=== PATIENT | male | born 1950 | race Caucasian/White ===

== ENCOUNTER 2016-07-15 22:55 | Emergency (ER) | payer MEDICARE, OTHER ==
[~2016-07-15] VITALS: Ht 185.4 cm; Wt 88.0 kg
[~2016-07-15 22:55] MED LIST: CYCL-36 PO; IBUP-238 PO; LORT5TAB PO; Z.0.NO CURRENT MEDS
[2016-07-15 23:32] VITALS: BP 119/89; PULSE 122; RESP 20; TEMP 99.3; O2SAT 97
[2016-07-15] MEDS ORDERED: TRAM50TA PO (23:53)
[2016-07-15] MEDS ORDERED: NAPR500 PO (23:53)
[2016-07-15 23:54] VITALS: BP 119/89; PULSE 102; RESP 18; TEMP 99.3; O2SAT 97
--- NOTE | 2016-07-16 00:22 | PD ---
HPI Chief Complaint: Cold / Flu Symptoms Time Seen by Provider: 00:22 Travel History International Travel<30 days: No Contact w/Intl Traveler<30days: No Traveled to known affect area: No History of Present Illness HPI The patient is a 66-year-old male that complains of cough congestion and pain in the sinus areas for about 2 days. He also has myalgias. He probably has had a low-grade fever at home. When he coughs, he has pain in his ribs bilaterally anteriorly. He does not smoke. He states he does have a sinus drainage and upper airway congestion. FOR[facility]LY [facility], LATER [facility] Past Medical History Diminished Hearing: No Tetanus Vaccination: Unknown Influenza Vaccination: Yes Past Surgical History Neurologic Surgery: Yes (BACK SURGERY X2) Social History Alcohol Use: Yes (OCCASIONAL) Tobacco Use: No Substance Use: No Allergies-Medications (Allergen,Severity, Reaction): Coded Allergies: Penicillin (Verified Allergy, Severe, RASH, 07/15/16) Reported Meds & Prescriptions Reported Meds & Active Scripts Active Zithromax (Azithromycin) 500 Mg Tab 500 Mg PO DAILY 5 Days Reported Naprosyn (Naproxen) 500 Mg Tab 500 Mg PO BID Tramadol (Tramadol HCl) 50 Mg Tab 50 Mg PO Q8H PRN Review of Systems Except as stated in HPI: all other systems reviewed are Neg Physical Exam Narrative GENERAL: The patient is alert, oriented 3 in no respiratory distress. His vital signs show temperature 99.3 with a heart rate of 122, repeat heart rate is 102, and the rest the vital signs are normal. SKIN: Warm and dry. No skin rash is seen. HEAD: Atraumatic. Normocephalic. EYES: Pupils equal and round. No scleral icterus. No injection or drainage. ENT: No nasal bleeding or discharge. Mucous membranes pink and moist. No sinus tenderness is present but the patient perceives sinus pain behind his eyes bilaterally. NECK: Trachea midline. No JVD. CARDIOVASCULAR: Regular rate and rhythm. No murmur appreciated. RESPIRATORY: No accessory muscle use. Clear to auscultation. Breath sounds equal bilaterally. GASTROINTESTINAL: Abdomen soft, non-tender, nondistended. Hepatic and splenic margins not palpable. No guarding or rebound is present. MUSCULOSKELETAL: No obvious deformities. No clubbing. No cyanosis. No edema. NEUROLOGICAL: Awake and alert. No obvious cranial nerve deficits. Motor grossly within normal limits. Normal speech. PSYCHIATRIC: Appropriate mood and affect; insight and judgment normal. Data Data Last Documented VS Vital Signs Date Time Temp Pulse Resp B/P Pulse Ox O2 Delivery O2 Flow Rate FiO2 07/15/16 23:57 102 18 97 Room Air 07/15/16 23:54 99.3 119/89 Orders Influenzae A/B Antigen (07/16/16 00:03) Influenzae A/B Antigen (07/16/16 00:22) MDM Medical Decision Making Medical Screen Exam Complete: Yes Emergency Medical Condition: Yes Medical Record Reviewed: Yes Interpretation(s) The influenza A/B antigen is negative for flu a and flu B antigen. Differential Diagnosis Viral syndrome, flu syndrome, rhinosinusitis, pneumoniaunlikely, bronchitis unlikely Narrative Course The patient appears to have rhinosinusitis with a viral syndrome. He is allergic to penicillin so we will give him Zithromax to see if that does not improve his sinusitis type symptoms. He needs to follow-up with a primary care physician next week. Diagnosis Primary Impression: Acute rhinosinusitis Additional Impression: Viral syndrome Additional Instructions: Take the antibiotic one tablet daily for 5 days. Drink plenty of liquids. Follow-up with her primary care physician in one week. Med/Other Pt SpecificInfo: Prescription(s) given Scripts Azithromycin (Zithromax)500 Mg Chb110 Mg PO DAILY 5 Days Ref 0 Prov:Almas Boswell MD 07/16/16 Disposition: 01 DISCHARGE HOME Condition: Stable Almas Boswell MD Jul 16, 2016 00:22
[2016-07-16] MEDS ORDERED: ZITH500T PO (00:28)
[2016-07-16 00:54] VITALS: BP 122/84; PULSE 94; RESP 18; O2SAT 97
[2016-07-16] MEDS ORDERED: AZITHROMYCIN 250 MG TAB PO ONE (01:00)
[2016-11-24] MEDS ORDERED: PRED50 PO (06:35)
[2016-12-01] MEDS ORDERED: TRAM50TA PO (07:41)
[2016-12-01] MEDS ORDERED: NAPR250T PO (07:42)
== END 2016-07-16 00:59 | disposition home or self-care (01) ==
LOC: PHED 22:55
DX: J01.90 Acute sinusitis, unspecified (principal); B34.9 Viral infection, unspecified; R05 Cough; M79.1 Myalgia
CPT/HCPCS: 87804; 99283

== ENCOUNTER 2016-11-18 22:20 | Inpatient (IN) | payer MEDICARE ==
[~2016-11-18 22:20] MED LIST changes: -CYCL-36 PO; -IBUP-238 PO; -LORT5TAB PO; +NAPR500 PO; +TRAM50TA PO; -Z.0.NO CURRENT MEDS; +ZITH500T PO
[2016-11-18] MEDS ORDERED: NALOXONE HCL 0.4 MG/ML AMP IV PRN (23:15)
[2016-11-18] MEDS ORDERED: MELATONIN 5 MG TAB PO ONE (23:30)
[2016-11-19] VITALS: BP 124/85; PULSE 107; RESP 18; TEMP 98.2; O2SAT 97
[2016-11-19] MEDS ORDERED: ONDANSETRON HCL 4 MG/2 ML VIAL IV PUSH PRN (01:30)
[2016-11-19] MEDS: ACETAMINOPHEN 500 MG CPLT PO PRN ×3 (01:39→16:34)
[2016-11-19 04:00] VITALS: BP 126/74; PULSE 133; RESP 18; TEMP 99.4; O2SAT 93
[2016-11-19 04:25] LABS: AUTOMATED NEUTROPHIL # 5.6 TH/MM3 (1.8-7.7); BASOPHIL # 0.1 TH/MM3 (0-0.2); BASOPHIL % 1.5 % (0.0-2.0); EOSINOPHIL # 0.3 TH/MM3 (0-0.4); EOSINOPHIL % 5.1 % (0.0-4.0); HEMATOCRIT 38.5 % (39.0-51.0); HEMO FLAGS DIFF FINAL; LYMPH % 4.6 % (9.0-44.0); LYMPHOCYTE # 0.3 TH/MM3 (1.0-4.8); MEAN CELL VOLUME 92.1 FL (80.0-100.0); MEAN CORPUSCULAR HEMOGLOBIN 30.5 PG (27.0-34.0); MEAN CORPUSCULAR HGB CONC 33.2 % (32.0-36.0); MONO % 6.7 % (0.0-8.0); NEUT % 82.1 % (16.0-70.0); PLATELET COUNT 132 TH/MM3 (150-450); RED BLOOD COUNT 4.18 MIL/MM3 (4.50-5.90); RED CELL DISTRIBUTION WIDTH 13.3 % (11.6-17.2); WHITE BLOOD COUNT 6.8 TH/MM3 (4.0-11.0)
[2016-11-19 04:36] LABS: BICARBONATE 22.9 MEQ/L (21.0-32.0)
[2016-11-19] MEDS ORDERED: SODIUM CHLOR 0.9% 1000 ML INJ 1,000 ML IV SCH (05:00)
--- NOTE | 2016-11-19 07:44 | HHI.HP ---
[facility] Admission Diagnosis Diagnoses: (1) Sepsis Diagnosis: Principal (2) Febrile illness Diagnosis: Principal (3) Sinus tachycardia Diagnosis: Principal (4) Cephalalgia Diagnosis: Principal (5) Sinusitis Diagnosis: Principal (6) Pneumonia Diagnosis: Principal (7) Thrombocytopenia Diagnosis: Principal (8) Hyperglycemia Diagnosis: Principal Chief Complaint: Fever Travel History International Travel<30 Days: No Contact w/Intl Traveler <30 Da: No Traveled to Known Affected Are: No Sepsis Criteria SIRS Criteria (2 or more): Temp > 100.9 or < 96.8, Heart rate over 90 Sepsis Criteria (SIRS+source): Infect source susp/known Criteria Outcome: Meets sepsis criteria History of Present Illness 66-year-old male with early chronic medical illness of chronic back pain who presented to the hospital because of fever. Patient states that his normal state of health on Thursday without any symptoms. Patient woke up Thursday morning at 2 AM with a headache located in the frontal sinus and bitemporal region. He does have migraines and this was not unusual for him to have a headache. However, patient states that he has felt lethargic with body aches all day. He laid on the couch all day until his came home. She took his temperature and is 102.0. Because of the fever they went to the ER [place] for evaluation. Patient had workup done there and found to have sepsis with tachycardia, febrile illness, chest x-ray with opacity of the left lung base. Because of the reasons it was recommended by ER physician that patient be observed in the hospital for further recommendations. Upon evaluating the patient this morning he states that he still has a headache still located in the frontal and bitemporal region. He states that he did have an episode of vomiting this morning approximate 4 AM. He rates the pain 4/10 on a pain scale. Denies any rhinorrhea, cough, congestion, sputum production. He does have a sore throat which is making difficult for him to swallow. He states that because of the sore throat and he has not been able to breathe normally and he describes it as a dyspnea. Patient is not indicating any shortness of breath. Review of Systems Constitutional: COMPLAINS OF: Fever, DENIES: Diaphoretic episodes, Fatigue, Weight gain, Weight loss, Chills, Dizziness, Change in appetite, Night Sweats Eyes: DENIES: Blurred vision, Diplopia, Eye inflammation, Eye pain, Vision loss , Photosensitivity, Double Vision Ears, nose, mouth, throat: COMPLAINS OF: Throat pain, Sinus Pain, Odynophagia, DENIES: Vertigo, Nasal discharge, Ear Pain, Running Nose Respiratory: DENIES: Apneas, Cough, Snoring, Wheezing, Hemoptysis, Sputum production, Shortness of breath Cardiovascular: DENIES: Chest pain, Palpitations, Syncope, Dyspnea on Exertion , Lower Extremity Edema, Orthopnea Gastrointestinal: COMPLAINS OF: Vomiting, DENIES: Abdominal pain, Black stools , Bloody stools, Constipation, Diarrhea, Nausea, Difficulty Swallowing, Anorexia Neurologic: DENIES: Abnormal gait, Headache, Localized weakness, Paresthesias, Speech Problems, Tremor, Poor Balance Past Family Social History Past Medical History Chronic back pain Past Surgical History Lumbar spine surgery 3 Reported Medications Tramadol for pain Allergies: Coded Allergies: Penicillin (Verified Allergy, Severe, RASH, 11/18/16) Family History Reviewed and unremarkable for any heart disease, lung disease, diabetes, kidney disease, cancer Social History Patient was smoking 3 years ago, prior to that he smoked 1-1/2 pack a cigarettes a day since he was 15 years old. He does drink only 2 beers 3 times weekly. Denies any illicit drugs Physical Exam Vital Signs Vital Signs Date Time Temp Pulse Resp B/P Pulse Ox O2 Delivery O2 Flow Rate FiO2 11/19/16 04:00 99.4 133 18 126/74 93 11/19/16 00:00 98.2 107 18 124/85 97 Physical Exam GENERAL: Well-developed, well-nourished, in no acute distress. alert and orientated HEENT: Head is normocephalic without any lesions or masses noted. Facial features are symmetric. Eyes: Pupils equal round reactive to light. Extraocular muscles are intact. Conjunctivae were clear. Oropharyngeal: Pharynx with erythema noted in the posterior pharynx. Tongue is midline without deviation. Buccal mucosa is moist without any masses or lesions. Palpable tenderness noted over frontal sinus and maxillary sinuses NECK: Supple without any masses. Trachea midline no deviation. No JVD, no bruits are appreciated CARDIAC: Regular rhythm, regular rate. S1/S2 are heard. No murmurs gallops or rubs. LUNGS: Clear to auscultation bilaterally. No wheeze, rhonchi or rales. No use of accessory muscles on inspiration or expiration. ABDOMEN: Soft, nontender. Nondistended. Bowel sounds heard in all 4 quadrants. No organomegaly or masses. Negative rebound, negative guarding EXTREMITIES: No edema, pulses are equal bilaterally. No cyanosis or clubbing NEUROLOGY: Mood and affect appear appropriate. Cranial nerves II through XII grossly intact. Muscle strength 5/5 in upper and lower extremities bilaterally. Deep tendon reflexes are 2+ in upper and lower extremities bilaterally. Laboratory Laboratory Tests Test 11/19/16 04:10 White Blood Count 6.8 Red Blood Count 4.18 Hemoglobin 12.8 Hematocrit 38.5 Mean Corpuscular Volume 92.1 Mean Corpuscular Hemoglobin 30.5 Mean Corpuscular Hemoglobin 33.2 Concent Red Cell Distribution Width 13.3 Platelet Count 132 Mean Platelet Volume 7.8 Neutrophils (%) (Auto) 82.1 Lymphocytes (%) (Auto) 4.6 Monocytes (%) (Auto) 6.7 Eosinophils (%) (Auto) 5.1 Basophils (%) (Auto) 1.5 Neutrophils # (Auto) 5.6 Lymphocytes # (Auto) 0.3 Monocytes # (Auto) 0.5 Eosinophils # (Auto) 0.3 Basophils # (Auto) 0.1 CBC Comment DIFF FINAL Differential Comment Sodium Level 138 Potassium Level 4.0 Chloride Level 104 Carbon Dioxide Level 22.9 Anion Gap 11 Blood Urea Nitrogen 13 Creatinine 0.99 Estimat Glomerular Filtration 76 Rate Random Glucose 132 Calcium Level 8.3 Result Diagram: 11/19/1640911/19/16409 Septic Shock Reassessment Heart: Other (tachycardia) Lungs: Clear Skin: Warm Peripheral Pulses: Bounding Right Radial Bounding Left Radial Capillary Refill: Brisk, <2 seconds Assessment and Plan Assessment and Plan 66-year-old male with known history of chronic back pain who presented to hospital because of febrile illness. Acute febrile illness most likely due to sinusitis with faint left lung infiltrate on x-ray, with no significant clinical signs of pneumonia, rule out sepsis Patient started on empirical treatment for community acquired pneumonia with Rocephin and Zithromax, will monitor -Started on decongestant and steroid nasal spray to improve his sinus symptoms, along with Tylenol Influenza testing was negative Blood cultures are pending Urinalysis was clear Patient without any nuchal rigidity, however in light of the patient's acute cephalgia, fever and sepsis appearance. If patient improved without fever, he may be able to be discharged on doxycycline for 10 days Dyspnea with tachycardia, decreased O2 saturations, mild thrombocytopenia Could be all secondary to sepsis as above Hyperglycemia We'll check hemoglobin A1c DVT prevention SCD and ambulation, we'll hold on chemical due to thrombocytopenia Written by Ross Boswell, acting as scribe for Dr. Washington on 11/19/16 at 09: 35. Addendum: CT chest came back positive for left hilar mass with mediastinal adenopathy, pulmonology consulted, recommended bronchoscopy, patient will need to go to [facility] for bronchoscopy if he is approved by the [place] Discussed Condition With Patient and PA Problem Qualifiers (1) Cephalalgia: Qualified Code: R51 - Intractable headache, unspecified chronicity pattern, unspecified headache type (2) Sinusitis: Qualified Code: J32.4 - Pansinusitis, unspecified chronicity (3) Pneumonia: Qualified Code: J18.1 - Pneumonia of left lower lobe due to infectious organism Ross Boswell November 19, 2016 07:44 Jose Washington MD November 19, 2016 11:01
[2016-11-19] MEDS ORDERED: cefTRIAXone INJ 1,000 MG in SODIUM CHLORIDE 0.9% INJ 100 ML IV SCH (09:00)
[2016-11-19 09:02] VITALS: BP 160/87; PULSE 77; RESP 16; TEMP 101.8; O2SAT 94
[2016-11-19] MEDS: SODIUM CHLORIDE 0.9% FLUSH 10 ML FLUSH IV FLUSH SCH ×2 (09:07→23:40)
[2016-11-19] MEDS: AZITHROMYCIN 250 MG TAB PO SCH (09:08)
[2016-11-19] MEDS ORDERED: ENALAPRILAT 1.25 MG/ML VIAL IV PUSH PRN (09:30)
[2016-11-19] MEDS: FLUTICASONE PROPIONATE 50 MCG/ACT 16 GM NASAL SPRAY NASAL SCH (11:00)
[2016-11-19] MEDS: OXYMETAZOLINE HCL 0.05% 15 ML NASAL SPRAY NASAL SCH ×2 (11:00→23:40)
[2016-11-19 12:06] VITALS: BP 134/71; PULSE 101; RESP 18; TEMP 99.1; O2SAT 94
[2016-11-19] MEDS ORDERED: IOHEXOL 350 MG/ML 10 ML VIAL (for RAD DIAG) IV ONE (12:15)
--- NOTE | 2016-11-19 12:34 | RADHPO ---
EXAM DATE/TIME: 11/19/2016 11:59 [facility] COMPARISON: No previous studies available for comparison. INDICATIONS : Elevated d-dimer, shortness of breath, cough. IV CONTRAST: 99 cc Omnipaque 350 (iohexol) IV RADIATION DOSE: 13.19 CTDIvol (mGy) MEDICAL HISTORY : Hypertension. Asbestosis, sob SURGICAL HISTORY : None. ENCOUNTER: Initial ACUITY: 1 day PAIN SCALE: 3/10 LOCATION: chest TECHNIQUE: Volumetric scanning of the chest was performed using a pulmonary embolism protocol MIP images were re constructed. Using automated exposure control and adjustment of the mA and/or kV according to patien t size, radiation dose was kept as low as reasonably achievable to obtain optimal diagnostic quality images. FINDINGS: There are no parenchymal lung infiltrates. There is mediastinal adenopathy, AP window adenopathy and subcarinal adenopathy. This is associated with a small hilar mass. All these fin dings are suspicious for a neoplastic process. Bronchoscopy would probably be the easiest way to make a diagno sis. There is no pericardial effusion. The portions of the liver and spleen identified are free of focal defects. There is good visualization of the central pulmonary vessels. There is no evidence of central pulmon rosales emboli. CONCLUSION: Adenopathy in the mediastinum with a small left hilar mass. The findings are suspicious for a small cell carcinoma. Metastatic disease could give a similar appearance. Lamonte Salazar MD FACR on November 19, 2016 at 12:21 Board Certified Radiologist. This report was verified electronically.
--- NOTE | 2016-11-19 14:32 | RADHPO ---
EXAM DATE/TIME: 11/19/2016 13:57 [facility] COMPARISON: No previous studies available for comparison. INDICATIONS : Elevated D-Dimer. MEDICAL HISTORY : Head trama, skull fx. Migraine. Respiratory disorder. Arthritis. Sepsis. Tachycardia. Cephalagia. Dys pnea. SURGICAL HISTORY : Back surgery. ENCOUNTER: Initial ACUITY: 1 day PAIN SCORE: 2/10 LOCATION: Bilateral leg. TECHNIQUE: Venous ultrasound of the left and right leg was performed from the inguinal ligament to the proximal calf. Real-time, color Doppler and spectral tracing, compression and augmentation techniques were us ed. FINDINGS: RIGHT LEG: There is normal compressibility of the deep venous system from the inguinal region to the proximal ca lf. No echogenic clot is seen in the lumen of the common femoral, femoral, popliteal, and posterior tibial veins. There is a normal response of the venous system to proximal and distal augmentation an d respiration. LEFT LEG: There is normal compressibility of the deep venous system from the inguinal region to the proximal ca lf. No echogenic clot is seen in the lumen of the common femoral, femoral, popliteal, and posterior tibial veins. There is a normal response of the venous system to proximal and distal augmentation an d respiration. CONCLUSION: Negative for deep venous thrombosis. Lamonte Salazar MD FACR on November 19, 2016 at 14:29 Board Certified Radiologist. This report was verified electronically.
[2016-11-19 16:19] LABS: HEMOGLOBIN A1a 1.1 %; HEMOGLOBIN A1b 1.5 %; HEMOGLOBIN Ao 85.7 %; HEMOGLOBIN LA1C 2.4 %
[2016-11-19 17:13] VITALS: BP 152/87; PULSE 101; RESP 15; TEMP 102.2; O2SAT 96
[2016-11-19] MEDS ORDERED: PIPERACIL-TAZO 3.375 GM PREMIX 50 ML IV SCH (17:45)
[2016-11-19] MEDS: CEFEPIME 2000 MG/NS 100 ML IV SCH ×2 (18:03)
--- NOTE | 2016-11-19 19:44 | EKG ---
Date Performed: 11/19/2016 Time Performed: 00:58:24 PTAGE: 66 years EKG: Sinus tachycardia Inferior T wave changes are nonspecific Borderline ECG Compared to the PREVIOUS TRACING rate faster DOCTOR: Inna Aiken Interpretating Date/Time 11/19/2016 19:44:09
[2016-11-19 20:00] VITALS: BP 121/70; PULSE 95; RESP 18; TEMP 99; O2SAT 95
[2016-11-19] MEDS: methylPREDNISolone SOD SUCC 40 MG/1 ML VIAL IV PUSH SCH (23:40)
[2016-11-20 00:36] VITALS: TEMP 99.5
[2016-11-20] MEDS: ACETAMINOPHEN 500 MG CPLT PO PRN ×2 (00:37→18:32)
[2016-11-20] MEDS ORDERED: LORazepam 2 MG/ML VIAL IV PUSH ONE (02:00)
[2016-11-20] MEDS: CEFEPIME 2000 MG/NS 100 ML IV SCH ×6 (03:26→18:22)
[2016-11-20 04:00] VITALS: BP 131/75; PULSE 88; RESP 20; TEMP 98.8; O2SAT 98
[2016-11-20] MEDS ORDERED: LACTATED RINGER'S 1000 ML IV PRN (04:30)
[2016-11-20] MEDS: methylPREDNISolone SOD SUCC 40 MG/1 ML VIAL IV PUSH SCH ×3 (05:57→21:48)
[2016-11-20 08:00] VITALS: BP 144/74; PULSE 83; RESP 19; TEMP 97.6; O2SAT 94
--- NOTE | 2016-11-20 08:19 | MB ---
cc: GIGI LOAIZA DATE OF CONSULTATION 11/19/2016 REASON FOR CONSULTATION Lung mass PRESENT ILLNESS This is a 66-year-old white male with a longstanding history of smoking. He has been having symptoms of cough, chest congestion, fever and wheezing. The patient apparently started these symptoms over the past two to three days and also developed severe headaches and was feeling quite weak and lethargic and thus went to the emergency room where he was suspected to have sepsis and also noted to have a pneumonia in the left base. He was thus advised admission and after admission, a CT of the chest was done which also demonstrated a nodular perihilar lung lesion and mediastinal adenopathy and no evidence of pulmonary emboli. The patient has been started on IV antibiotics including Rocephin one gram IV daily and Zithromax 500 milligrams IV daily. He continues to have some fevers and chills and is having some rapid heart beat. The patient has been coughing up yellowish-white mucus. Denies hemoptysis. Denies leg or calf muscle pain. PAST HISTORY Has included: 1. Chronic back pain and history of lumbar disk surgery. 2. Denies history of hypertension or diabetes of chronic lung disease. ALLERGIES PENICILLIN FAMILY HISTORY Noncontributory HABITS The patient smoked one to two packs per day for about 40 years and then quit two years ago. Drinks alcohol moderately. No illicit drug use. REVIEW OF SYSTEMS The patient has lost weight. He has postnasal drip, dizziness, cough with expectoration, and wheezing. He has epigastric distress and reflux. No urinary symptoms. No leg or calf muscle pains, but has some joint pains and denies skin lesions. No depression, but has anxiety and headache. PHYSICAL EXAMINATION This is an averagely built elderly white male who is alert and anxious, mildly dyspneic. VITAL SIGNS: Blood pressure 130/70, pulse is 112, respirations 24, temperature 98.2. HEENT: Head normocephalic. Pupils are reactive. Tongue is moist. Throat is mildly injected. Ears have mild cerumen. NECK: Supple. No bruits or thyroid enlargement or lymphadenopathy. CHEST: Increased AP diameter with diffuse wheezes throughout both lung quijano with no crackles. HEART: The heart sounds were regular S1-S2. No murmur. ABDOMEN: Soft and benign. No masses or tenderness. EXTREMITIES: No edema. Reflexes are 1+ with no gross motor deficits. NEUROLOGIC: Cranial nerves grossly intact. RCTAL: Exam is deferred. IMPRESSION 1. Left basilar pneumonia with sepsis 2. Hilar mass, rule out malignancy 3. COPD with emphysema 4. Migraine headaches PLAN The patient has been started on Cefepime 2 grams IV every 8 hours, nebulized DuoNeb solution added q.i.d. and he will have a pulmonary function study done at the bedside. A repeat chest x-ray to be done and the patient was advised that bronchoscopy will be scheduled to evaluate the lung nodule. The procedure and potential risks were explained. Thank you for this consultation. MD QUINTEN Bryant/OSITO /11:09 PM /8:05 AM
[2016-11-20] MEDS: SODIUM CHLORIDE 0.9% FLUSH 10 ML FLUSH IV FLUSH SCH ×2 (08:31→21:49)
--- NOTE | 2016-11-20 08:42 | HHI.PR ---
Subjective Remarks This is a pleasant 66 y/o male with chronic back pain, who came to ER with fever , headache, Lethargic, body aches fever, sepsis and tachycardia, CXR with Opacities on the left lung base, nausea and vomit, Seen in his bedroom No complaint no nausea, vomit or diarrhea. Objective Vital Signs Date Time Temp Pulse Resp B/P Pulse Ox O2 Delivery O2 Flow Rate FiO2 11/20/16 08:00 97.6 83 19 144/74 94 11/20/16 04:00 98.8 88 20 131/75 98 11/20/16 00:36 99.5 11/19/16 20:00 99.0 95 18 121/70 95 11/19/16 17:41 18 11/19/16 17:13 102.2 101 15 152/87 96 11/19/16 12:06 99.1 101 18 134/71 94 11/19/16 09:02 101.8 77 16 160/87 94 I/O 11/19/16 11/19/16 11/19/16 11/20/16 11/20/16 11/20/16 07:00 15:00 23:00 07:00 15:00 23:00 Intake Total 184 ml 1000 ml 120 ml Output Total 600 ml Balance 184 ml 1000 ml -480 ml Intake Oral 1000 ml 0 ml IV Total 184 ml 0 ml 120 ml Output Urine Total 600 ml # Voids 3 # Bowel Movements 0 Result Diagram: 11/19/16 0410 11/19/16 0410 Imaging Last Impressions Lower Extremity Ultrasound 11/19/16 0000 Signed Impressions: Service Date/Time: Saturday, November 19, 2016 13:57 - CONCLUSION: Negative for deep venous thrombosis. Lamonte Salazar MD FACR CT Angiography 11/19/16 0000 Signed Impressions: Service Date/Time: Saturday, November 19, 2016 11:59 - CONCLUSION: Adenopathy in the mediastinum with a small left hilar mass. The findings are suspicious for a small cell carcinoma. Metastatic disease could give a similar appearance. Lamonte Salazar MD FACR Procedures No procedures. Other Results Laboratory Tests Test 11/19/16 11/19/16 04:10 07:05 White Blood Count 6.8 TH/MM3 Red Blood Count 4.18 MIL/MM3 Hemoglobin 12.8 GM/DL Hematocrit 38.5 % Mean Corpuscular Volume 92.1 FL Mean Corpuscular Hemoglobin 30.5 PG Mean Corpuscular Hemoglobin 33.2 % Concent Red Cell Distribution Width 13.3 % Platelet Count 132 TH/MM3 Mean Platelet Volume 7.8 FL Neutrophils (%) (Auto) 82.1 % Lymphocytes (%) (Auto) 4.6 % Monocytes (%) (Auto) 6.7 % Eosinophils (%) (Auto) 5.1 % Basophils (%) (Auto) 1.5 % Neutrophils # (Auto) 5.6 TH/MM3 Lymphocytes # (Auto) 0.3 TH/MM3 Monocytes # (Auto) 0.5 TH/MM3 Eosinophils # (Auto) 0.3 TH/MM3 Basophils # (Auto) 0.1 TH/MM3 CBC Comment DIFF FINAL Differential Comment Sodium Level 138 MEQ/L Potassium Level 4.0 MEQ/L Chloride Level 104 MEQ/L Carbon Dioxide Level 22.9 MEQ/L Anion Gap 11 MEQ/L Blood Urea Nitrogen 13 MG/DL Creatinine 0.99 MG/DL Estimat Glomerular Filtration 76 ML/MIN Rate Random Glucose 132 MG/DL Hemoglobin A1c 5.2 % Calcium Level 8.3 MG/DL D-Dimer Quantitative (PE/DVT) 1.49 MG/L FEU Objective Remarks GENERAL: Well-developed, well-nourished, in no acute distress. alert and orientated HEENT: Head is normocephalic without any lesions or masses noted. Facial features are symmetric. Eyes: Pupils equal round reactive to light. Extraocular muscles are intact. Conjunctivae were clear. Oropharyngeal: Pharynx with erythema noted in the posterior pharynx. Tongue is midline without deviation. Buccal mucosa is moist without any masses or lesions. Palpable tenderness noted over frontal sinus and maxillary sinuses NECK: Supple without any masses. Trachea midline no deviation. No JVD, no bruits are appreciated CARDIAC: Regular rhythm, regular rate. S1/S2 are heard. No murmurs gallops or rubs. LUNGS: Clear to auscultation bilaterally. No wheeze, rhonchi or rales. No use of accessory muscles on inspiration or expiration. ABDOMEN: Soft, nontender. Nondistended. Bowel sounds heard in all 4 quadrants. No organomegaly or masses. Negative rebound, negative guarding EXTREMITIES: No edema, pulses are equal bilaterally. No cyanosis or clubbing NEUROLOGY: Mood and affect appear appropriate. Cranial nerves II through XII grossly intact. Muscle strength 5/5 in upper and lower extremities bilaterally. Deep tendon reflexes are 2+ in upper and lower extremities bilaterally. Medications and IVs Current Medications Medications (Trade) Dose Ordered Sig/Cassius Route Start Time Stop Time Status Last Admin (NS Flush) 2 ml UNSCH PRN IV FLUSH 11/18/16 23:15 (NS Flush) 2 ml BID IV FLUSH 11/19/16 09:00 11/20/16 08:31 (Narcan Inj) 0.4 mg UNSCH PRN IV 11/18/16 23:15 (Zithromax) 500 mg DAILY PO 11/19/16 09:00 11/19/16 09:08 (Tylenol) 500 mg Q6H PRN PO 11/19/16 01:30 11/20/16 00:37 (Zofran Inj) 4 mg Q6HR PRN IV PUSH 11/19/16 01:30 11/19/16 01:40 (Vasotec Inj) 1.25 mg Q6H PRN IV PUSH 11/19/16 09:30 (Afrin 0.05% Fidel [place]) 2 spray Q12HR NASAL 11/19/16 11:00 11/19/16 23:40 (Flonase Fidel Spr) 2 spray DAILY NASAL 11/19/16 11:00 Methylprednisolone Sodium Succinate 40 mg 40 mg Q8HR IV PUSH 11/19/16 22:00 11/20/16 05:57 Cefepime HCl 2000 mg/Sodium Chloride 100 ml @ 200 mls/hr Q8H IV 11/19/16 18:00 11/20/16 08:31 (Lr 1000 ml Inj) 1,000 ml @ 30 mls/hr Q24H PRN IV 11/20/16 04:30 11/23/16 04:29 A/P Assessment and Plan 1. Sepsis secondary to Pneumonia followed by security specialist, with diagnosis of Left Basilar Pneumonia on Cefepime and Azithromycin, Bronchodilator, Mucolytic and Incentive spirometry. to discharge on Doxycycline for 10 day. 2. Hilar mass to rule out malignancy probable Bronchoscopy to follow. 3. COPD with Emphysema no signs of exacerbation. DVT prevention SCD and ambulation, we'll hold on chemical due to thrombocytopenia Discharge Planning Expected in one to two days. Scott Huntley MD November 20, 2016 08:42 Dyspnea with tachycardia, decreased O2 saturations, mild thrombocytopenia Could be all secondary to sepsis as above Hyperglycemia We'll check hemoglobin A1c DVT prevention SCD and ambulation, we'll hold on chemical due to thrombocytopenia CT chest came back positive for left hilar mass with mediastinal adenopathy, pulmonology consulted, recommended bronchoscopy, patient will need to go to [facility] for bronchoscopy if he is approved by the [place] Scott Huntley MD November 20, 2016 08:42
[2016-11-20 08:45] LABS: AUTOMATED NEUTROPHIL # 4.6 TH/MM3 (1.8-7.7); BASOPHIL % 0.2 % (0.0-2.0); EOSINOPHIL # 0.1 TH/MM3 (0-0.4); EOSINOPHIL % 1.4 % (0.0-4.0); HEMATOCRIT 36.1 % (39.0-51.0); HEMO FLAGS DIFF FINAL; LYMPHOCYTE # 0.5 TH/MM3 (1.0-4.8); MEAN CELL VOLUME 91.3 FL (80.0-100.0); MEAN CORPUSCULAR HEMOGLOBIN 31.7 PG (27.0-34.0); MEAN CORPUSCULAR HGB CONC 34.8 % (32.0-36.0); MONO % 4.2 % (0.0-8.0); NEUT % 84.2 % (16.0-70.0); PLATELET COUNT 113 TH/MM3 (150-450); RED BLOOD COUNT 3.95 MIL/MM3 (4.50-5.90); RED CELL DISTRIBUTION WIDTH 13.8 % (11.6-17.2); WHITE BLOOD COUNT 5.5 TH/MM3 (4.0-11.0)
[2016-11-20] MEDS: OXYMETAZOLINE HCL 0.05% 15 ML NASAL SPRAY NASAL SCH ×2 (09:00→21:52)
[2016-11-20] MEDS: FLUTICASONE PROPIONATE 50 MCG/ACT 16 GM NASAL SPRAY NASAL SCH (09:00)
[2016-11-20 09:05] LABS: MAGNESIUM 2.2 MG/DL (1.5-2.5); POTASSIUM 3.9 MEQ/L (3.5-5.1)
[2016-11-20] MEDS: AZITHROMYCIN 250 MG TAB PO SCH (11:13)
[2016-11-20 12:00] VITALS: BP 154/80; PULSE 83; RESP 19; TEMP 97.3; O2SAT 95
[2016-11-20] MEDS ORDERED: DEXT 5%-NACL 0.45% 1000 ML INJ 1,000 ML IV SCH (12:47)
--- NOTE | 2016-11-20 12:47 | HHI.PR ---
Subjective Remarks Better to day . No fever. O2 sat 96. Cough is less Objective Vital Signs Date Time Temp Pulse Resp B/P Pulse Ox O2 Delivery O2 Flow Rate FiO2 11/20/16 12:00 97.3 83 19 154/80 95 11/20/16 08:00 97.6 83 19 144/74 94 11/20/16 04:00 98.8 88 20 131/75 98 11/20/16 00:36 99.5 11/19/16 20:00 99.0 95 18 121/70 95 11/19/16 17:41 18 11/19/16 17:13 102.2 101 15 152/87 96 I/O 11/19/16 11/19/16 11/19/16 11/20/16 11/20/16 11/20/16 07:00 15:00 23:00 07:00 15:00 23:00 Intake Total 184 ml 1000 ml 120 ml Output Total 600 ml Balance 184 ml 1000 ml -480 ml Intake Oral 1000 ml 0 ml IV Total 184 ml 0 ml 120 ml Output Urine Total 600 ml # Voids 3 # Bowel Movements 0 Result Diagram: 11/20/16 0820 11/20/16 0820 Procedures No procedures. Objective Remarks This is an averagely built elderly white male who is alert and anxious, mildly dyspneic. HEENT: Head normocephalic. Pupils are reactive. Tongue is moist. Throat is mildly injected. Ears have mild cerumen. NECK: Supple. No bruits or thyroid enlargement or lymphadenopathy. CHEST: Increased AP diameter with wheezes throughout both lung quijano with no crackles. HEART: The heart sounds were regular S1-S2. No murmur. ABDOMEN: Soft and benign. No masses or tenderness. EXTREMITIES: No edema. Reflexes are 1+ with no gross motor deficits. NEUROLOGIC: Cranial nerves grossly intact. RCTAL: Exam is deferred. Assessment and Plan Assessment and Plan IMPRESSION 1. Left basilar pneumonia with sepsis 2. Hilar mass, rule out malignancy 3. COPD with emphysema 4. Migraine headaches Plan : 1. Will Schedule Bronchoscopy in am. 2. Wean O2 to RA. 3. Nebs qid , duoneb. 4. Cont Antibiotics, Cefipime ,Zithro 5. PFT in am Sadiq Adorno MD November 20, 2016 12:47
[2016-11-20] MEDS ORDERED: RESP: ALBUTEROL CONC 2.5 MG/0.5 ML NEB NEB SCH (13:00)
[2016-11-20 14:12] LABS: APTT (PATIENT) 30.7 SEC (24.3-30.1); PROTHROMBIN TIME - PATIENT 11.6 SEC (9.8-11.6)
[2016-11-20 16:00] VITALS: BP 134/71; PULSE 85; RESP 19; TEMP 96.9; O2SAT 96
[2016-11-21] VITALS: BP 129/74; PULSE 76; RESP 17; TEMP 96.7; O2SAT 96
[2016-11-21] MEDS: CEFEPIME 2000 MG/NS 100 ML IV SCH ×6 (00:40→17:02)
[2016-11-21] MEDS: SODIUM CHLORIDE 0.9% FLUSH 10 ML FLUSH IV FLUSH PRN ×2 (00:40→05:55)
[2016-11-21 04:00] VITALS: BP 137/75; PULSE 68; RESP 17; TEMP 97; O2SAT 97
[2016-11-21] MEDS: methylPREDNISolone SOD SUCC 40 MG/1 ML VIAL IV PUSH SCH ×3 (05:55→22:00)
[2016-11-21 08:00] VITALS: BP 137/75; PULSE 83; RESP 18; TEMP 96.6; O2SAT 96
[2016-11-21] MEDS: AZITHROMYCIN 250 MG TAB PO SCH (08:21)
[2016-11-21] MEDS: OXYMETAZOLINE HCL 0.05% 15 ML NASAL SPRAY NASAL SCH ×2 (08:21→19:55)
[2016-11-21] MEDS: FLUTICASONE PROPIONATE 50 MCG/ACT 16 GM NASAL SPRAY NASAL SCH (08:21)
[2016-11-21] MEDS: SODIUM CHLORIDE 0.9% FLUSH 10 ML FLUSH IV FLUSH SCH ×2 (08:22→19:54)
--- NOTE | 2016-11-21 09:20 | HHI.PR ---
Subjective Remarks This is a pleasant 66 y/o male with chronic back pain, who came to ER with fever , headache, Lethargic, body aches fever, sepsis and tachycardia, CXR with Opacities on the left lung base, nausea and vomit. 11/21: Seen in his bedroom and discussed with nurse Miss Tafoya, no complaint , no nausea, vomit or diarrhea he will have Bronchoscopy later today, I think may be discharged after procedure and follow as outpatient by claims specialist and Oncology if indicated. his Mrs. Suarez in the room she works for [employer]. Objective Vital Signs Date Time Temp Pulse Resp B/P Pulse Ox O2 Delivery O2 Flow Rate FiO2 11/21/16 08:00 96.6 83 18 137/75 96 11/21/16 04:00 97.0 68 17 137/75 97 11/21/16 00:00 96.7 76 17 129/74 96 11/20/16 16:00 96.9 85 19 134/71 96 11/20/16 12:00 97.3 83 19 154/80 95 I/O 11/20/16 11/20/16 11/20/16 11/21/16 11/21/16 11/21/16 07:00 15:00 23:00 07:00 15:00 23:00 Intake Total 120 ml 880 ml 480 ml 0 ml Output Total 600 ml 900 ml Balance -480 ml -20 ml 480 ml 0 ml Intake Oral 0 ml 880 ml 480 ml 0 ml IV Total 120 ml Output Urine Total 600 ml 900 ml # Voids 3 2 # Bowel Movements 0 1 Result Diagram: 11/20/16 0820 11/20/16 0820 Imaging Last Impressions Lower Extremity Ultrasound 11/19/16 0000 Signed Impressions: Service Date/Time: Saturday, November 19, 2016 13:57 - CONCLUSION: Negative for deep venous thrombosis. Lamonte Salazar MD FACR CT Angiography 11/19/16 0000 Signed Impressions: Service Date/Time: Saturday, November 19, 2016 11:59 - CONCLUSION: Adenopathy in the mediastinum with a small left hilar mass. The findings are suspicious for a small cell carcinoma. Metastatic disease could give a similar appearance. Lamonte Salazar MD FACR Procedures No procedures. Other Results Laboratory Tests Test 11/19/16 11/19/16 11/20/1611/17 04:10 07:05 08:20 13:25 Hemoglobin A1c 5.2 % D-Dimer Quantitative (PE/DVT) 1.49 MG/L FEU White Blood Count 5.5 TH/MM3 Red Blood Count 3.95 MIL/MM3 Hemoglobin 12.5 GM/DL Hematocrit 36.1 % Mean Corpuscular Volume 91.3 FL Mean Corpuscular Hemoglobin 31.7 PG Mean Corpuscular Hemoglobin 34.8 % Concent Red Cell Distribution Width 13.8 % Platelet Count 113 TH/MM3 Mean Platelet Volume 8.9 FL Neutrophils (%) (Auto) 84.2 % Lymphocytes (%) (Auto) 10.0 % Monocytes (%) (Auto) 4.2 % Eosinophils (%) (Auto) 1.4 % Basophils (%) (Auto) 0.2 % Neutrophils # (Auto) 4.6 TH/MM3 Lymphocytes # (Auto) 0.5 TH/MM3 Monocytes # (Auto) 0.2 TH/MM3 Eosinophils # (Auto) 0.1 TH/MM3 Basophils # (Auto) 0.0 TH/MM3 CBC Comment DIFF FINAL Differential Comment Sodium Level 138 MEQ/L Potassium Level 3.9 MEQ/L Chloride Level 104 MEQ/L Carbon Dioxide Level 24.0 MEQ/L Anion Gap 10 MEQ/L Blood Urea Nitrogen 15 MG/DL Creatinine 1.10 MG/DL Estimat Glomerular Filtration 67 ML/MIN Rate Random Glucose 150 MG/DL Calcium Level 8.6 MG/DL Magnesium Level 2.2 MG/DL Prothrombin Time 11.6 SEC Prothromb Time International 1.0 RATIO Ratio Activated Partial 30.7 SEC Thromboplast Time Objective Remarks GENERAL: Well-developed, well-nourished, in no acute distress. alert and orientated HEENT: Head is normocephalic without any lesions or masses noted. Facial features are symmetric. Eyes: Pupils equal round reactive to light. Extraocular muscles are intact. Conjunctivae were clear. Oropharyngeal: Pharynx with erythema noted in the posterior pharynx. Tongue is midline without deviation. Buccal mucosa is moist without any masses or lesions. Palpable tenderness noted over frontal sinus and maxillary sinuses NECK: Supple without any masses. Trachea midline no deviation. No JVD, no bruits are appreciated CARDIAC: Regular rhythm, regular rate. S1/S2 are heard. No murmurs gallops or rubs. LUNGS: Clear to auscultation bilaterally. No wheeze, rhonchi or rales. No use of accessory muscles on inspiration or expiration. ABDOMEN: Soft, nontender. Nondistended. Bowel sounds heard in all 4 quadrants. No organomegaly or masses. Negative rebound, negative guarding EXTREMITIES: No edema, pulses are equal bilaterally. No cyanosis or clubbing NEUROLOGY: Mood and affect appear appropriate. Cranial nerves II through XII grossly intact. Muscle strength 5/5 in upper and lower extremities bilaterally. Deep tendon reflexes are 2+ in upper and lower extremities bilaterally. Medications and IVs Current Medications Medications (Trade) Dose Ordered Sig/Cassius Route Start Time Stop Time Status Last Admin (NS Flush) 2 ml UNSCH PRN IV FLUSH 11/18/16 23:15 11/21/16 05:55 (NS Flush) 2 ml BID IV FLUSH 11/19/16 09:00 11/21/16 08:22 (Narcan Inj) 0.4 mg UNSCH PRN IV 11/18/16 23:15 (Zithromax) 500 mg DAILY PO 11/19/16 09:00 11/21/16 08:21 (Tylenol) 500 mg Q6H PRN PO 11/19/16 01:30 11/20/16 18:32 (Zofran Inj) 4 mg Q6HR PRN IV PUSH 11/19/16 01:30 11/19/16 01:40 (Vasotec Inj) 1.25 mg Q6H PRN IV PUSH 11/19/16 09:30 (Afrin 0.05% Fidel [place]) 2 spray Q12HR NASAL 11/19/16 11:00 11/21/16 08:21 (Flonase Fidel Spr) 2 spray DAILY NASAL 11/19/16 11:00 11/21/16 08:21 Methylprednisolone Sodium Succinate 40 mg 40 mg Q8HR IV PUSH 11/19/16 22:00 11/21/16 05:55 Cefepime HCl 2000 mg/Sodium Chloride 100 ml @ 200 mls/hr Q8H IV 11/19/16 18:00 11/21/16 08:21 Lactated Ringer's 1,000 ml @ 30 mls/hr Q24H PRN IV 11/20/16 04:30 11/23/16 04:29 (D5W-1/2 NS 1000 ml Inj) 1,000 ml @ 0 mls/hr Q0M IV 11/20/16 12:47 A/P Assessment and Plan 1. Sepsis secondary to Pneumonia followed by claims specialist, with diagnosis of Left Basilar Pneumonia on Cefepime and Azithromycin, Bronchodilator, Mucolytic and Incentive spirometry. Continue present care and follow claims specialist recommendations for discharge, at room air. PFTs today. 2. Hilar mass to rule out malignancy for Bronchoscopy today. 3. COPD with Emphysema no signs of exacerbation. DVT prevention SCD and ambulation, we'll hold on chemical due to thrombocytopenia Discharge Planning Expected later today or in am tomorrow. Scott Huntley MD November 21, 2016 09:20
[2016-11-21] MEDS ORDERED: LIDOCAINE VISCOUS 2% SOLN 15 ML UDC ONE (09:21)
[2016-11-21] MEDS ORDERED: EPINEPHrine HCL (1:1000) 1 MG/ML VIAL ONE (09:22)
[2016-11-21] MEDS ORDERED: SODIUM CHLORIDE 0.9% 20 ML VIAL ONE ×2 (09:24→10:02)
[2016-11-21] MEDS ORDERED: LIDOCAINE HCL 4% PF 5 ML AMP ONE (10:05)
[2016-11-21] MEDS ORDERED: FAMOTIDINE 20 MG/2 ML VIAL ONE (11:32)
[2016-11-21] MEDS ORDERED: RESP: ALBUTEROL 2.5 MG/3 ML NEB (PRN) NEB (12:00)
[2016-11-21] MEDS ORDERED: DO NOT ADM ANY ANTICOAGULANT DRUGS PRN (12:06)
--- NOTE | 2016-11-21 12:49 | RADRPT ---
EXAM DATE/TIME: 11/21/2016 12:09 [place] COMPARISON: CT PULMONARY ANGIOGRAM, November 19, 2016, 11:59. CHEST SINGLE AP, November 18, 2016, 18:14. INDICATIONS : Post bronchoscopy, evaluate for pneumothorax MEDICAL HISTORY : Hypertension. asbestosis, hilar mass left lung SURGICAL HISTORY : None. ENCOUNTER: Subsequent ACUITY: 2 days PAIN SCORE: 2/10 LOCATION: Bilateral chest FINDINGS: A single view of the chest demonstrates the lungs to be symmetrically aerated without evidence of mas s, infiltrate or effusion. The cardiomediastinal contours are unremarkable. Osseous structures are intact. CONCLUSION: There is no pneumothorax following bronchoscopy Lamonte Salazar MD FACR on November 21, 2016 at 12:46 Board Certified Radiologist. This report was verified electronically.
[2016-11-21] MEDS ORDERED: PROPOFOL 200 MG/20 ML AMP IV ONE (12:53)
[2016-11-21 13:00] VITALS: BP 141/77; PULSE 73; RESP 20; TEMP 96.9; O2SAT 95
[2016-11-21 16:00] VITALS: BP 133/77; PULSE 74; RESP 17; TEMP 97.6; O2SAT 95
[2016-11-21] MEDS ORDERED: LORazepam 1 MG TAB PO ONE (19:30)
[2016-11-21 20:00] VITALS: BP 130/75; PULSE 72; RESP 17; TEMP 97.1; O2SAT 95
[2016-11-22] VITALS (8 sets, daily range): BP systolic 118–187; BP diastolic 63–88; PULSE 62–95; RESP 16–19; TEMP 96.2–98.5; O2SAT 94–96
[2016-11-22] MEDS: CEFEPIME 2000 MG/NS 100 ML IV SCH ×6 (02:02→17:58)
[2016-11-22] MEDS: methylPREDNISolone SOD SUCC 40 MG/1 ML VIAL IV PUSH SCH ×3 (05:27→21:26)
[2016-11-22] MEDS: AZITHROMYCIN 250 MG TAB PO SCH (08:48)
[2016-11-22] MEDS: SODIUM CHLORIDE 0.9% FLUSH 10 ML FLUSH IV FLUSH SCH ×2 (08:48→21:27)
[2016-11-22] MEDS: FLUTICASONE PROPIONATE 50 MCG/ACT 16 GM NASAL SPRAY NASAL SCH (08:48)
[2016-11-22] MEDS: OXYMETAZOLINE HCL 0.05% 15 ML NASAL SPRAY NASAL SCH ×2 (08:48→21:00)
--- NOTE | 2016-11-22 13:36 | HHI.PR ---
Subjective Remarks This is a pleasant 66 y/o male with chronic back pain, who came to ER with fever , headache, Lethargic, body aches fever, sepsis and tachycardia, CXR with Opacities on the left lung base, nausea and vomit. 11/21: he will have Bronchoscopy later today, I think may be discharged after procedure and follow as outpatient by insurance sales specialist and Oncology if indicated. his Mrs. Suarez in the room she works for [employer]. 11/22; Seen in his bedroom, and discussed with nurse miss Castaneda, he wants to go home, no nausea, vomit or diarrhea doctor Tila called and awaiting for his call back. Objective Vital Signs Date Time Temp Pulse Resp B/P Pulse Ox O2 Delivery O2 Flow Rate FiO2 11/22/16 12:00 97.4 83 18 129/65 96 11/22/16 09:00 98.1 87 18 123/63 96 11/22/16 08:00 96.9 95 19 187/79 96 11/22/16 04:00 96.2 62 17 118/70 96 11/22/16 01:27 94 11/22/16 00:00 96.8 67 17 124/72 96 11/21/16 20:00 97.1 72 17 130/75 95 11/21/16 16:00 97.6 74 17 133/77 95 I/O 11/21/16 11/21/16 11/21/16 11/22/16 11/22/16 11/22/16 07:00 15:00 23:00 07:00 15:00 23:00 Intake Total 0 ml 750 ml 240 ml 240 ml Output Total 550 ml Balance 0 ml 200 ml 240 ml 240 ml Intake Oral 0 ml 0 ml 240 ml 240 ml IV Total 250 ml Other 500 ml Output Urine Total 550 ml # Voids 2 2 2 # Bowel Movements 4 Result Diagram: 11/20/1620 11/20/16819 Imaging Last Impressions Chest X-Ray 11/21/16 0000 Signed Impressions: Service Date/Time: Monday, November 21, 2016 12:09 - CONCLUSION: There is no pneumothorax following bronchoscopy Lamonte Salazar MD FACR Lower Extremity Ultrasound 11/19/16 0000 Signed Impressions: Service Date/Time: Saturday, November 19, 2016 13:57 - CONCLUSION: Negative for deep venous thrombosis. Lamonte Salazar MD FACR CT Angiography 11/19/16 0000 Signed Impressions: Service Date/Time: Saturday, November 19, 2016 11:59 - CONCLUSION: Adenopathy in the mediastinum with a small left hilar mass. The findings are suspicious for a small cell carcinoma. Metastatic disease could give a similar appearance. Lamonte Salazar MD FACR Procedures Bronchoscopy 11/21/16 Other Results Laboratory Tests Test 11/19/16 11/19/16 11/20/16 11/20/16 04:10 07:05 08:20 13:25 Hemoglobin A1c 5.2 % D-Dimer Quantitative (PE/DVT) 1.49 MG/L FEU White Blood Count 5.5 TH/MM3 Red Blood Count 3.95 MIL/MM3 Hemoglobin 12.5 GM/DL Hematocrit 36.1 % Mean Corpuscular Volume 91.3 FL Mean Corpuscular Hemoglobin 31.7 PG Mean Corpuscular Hemoglobin 34.8 % Concent Red Cell Distribution Width 13.8 % Platelet Count 113 TH/MM3 Mean Platelet Volume 8.9 FL Neutrophils (%) (Auto) 84.2 % Lymphocytes (%) (Auto) 10.0 % Monocytes (%) (Auto) 4.2 % Eosinophils (%) (Auto) 1.4 % Basophils (%) (Auto) 0.2 % Neutrophils # (Auto) 4.6 TH/MM3 Lymphocytes # (Auto) 0.5 TH/MM3 Monocytes # (Auto) 0.2 TH/MM3 Eosinophils # (Auto) 0.1 TH/MM3 Basophils # (Auto) 0.0 TH/MM3 CBC Comment DIFF FINAL Differential Comment Sodium Level 138 MEQ/L Potassium Level 3.9 MEQ/L Chloride Level 104 MEQ/L Carbon Dioxide Level 24.0 MEQ/L Anion Gap 10 MEQ/L Blood Urea Nitrogen 15 MG/DL Creatinine 1.10 MG/DL Estimat Glomerular Filtration 67 ML/MIN Rate Random Glucose 150 MG/DL Calcium Level 8.6 MG/DL Magnesium Level 2.2 MG/DL Prothrombin Time 11.6 SEC Prothromb Time International 1.0 RATIO Ratio Activated Partial 30.7 SEC Thromboplast Time Objective Remarks GENERAL: Well-developed, well-nourished, in no acute distress. alert and orientated HEENT: Head is normocephalic without any lesions or masses noted. Facial features are symmetric. Eyes: Pupils equal round reactive to light. Extraocular muscles are intact. Conjunctivae were clear. Oropharyngeal: Pharynx with erythema noted in the posterior pharynx. Tongue is midline without deviation. Buccal mucosa is moist without any masses or lesions. Palpable tenderness noted over frontal sinus and maxillary sinuses NECK: Supple without any masses. Trachea midline no deviation. No JVD, no bruits are appreciated CARDIAC: Regular rhythm, regular rate. S1/S2 are heard. No murmurs gallops or rubs. LUNGS: Clear to auscultation bilaterally. No wheeze, rhonchi or rales. No use of accessory muscles on inspiration or expiration. ABDOMEN: Soft, nontender. Nondistended. Bowel sounds heard in all 4 quadrants. No organomegaly or masses. Negative rebound, negative guarding EXTREMITIES: No edema, pulses are equal bilaterally. No cyanosis or clubbing NEUROLOGY: Mood and affect appear appropriate. Cranial nerves II through XII grossly intact. Muscle strength 5/5 in upper and lower extremities bilaterally. Deep tendon reflexes are 2+ in upper and lower extremities bilaterally. Medications and IVs Current Medications Medications (Trade) Dose Ordered Sig/Cassius Route Start Time Stop Time Status Last Admin (NS Flush) 2 ml UNSCH PRN IV FLUSH 11/18/16 23:15 11/21/16 05:55 (NS Flush) 2 ml BID IV FLUSH 11/19/16 09:00 11/22/16 08:48 (Narcan Inj) 0.4 mg UNSCH PRN IV 11/18/16 23:15 (Zithromax) 500 mg DAILY PO 11/19/16 09:00 11/22/16 08:48 (Tylenol) 500 mg Q6H PRN PO 11/19/16 01:30 11/20/16 18:32 (Zofran Inj) 4 mg Q6HR PRN IV PUSH 11/19/16 01:30 11/19/16 01:40 (Vasotec Inj) 1.25 mg Q6H PRN IV PUSH 11/19/16 09:30 (Afrin 0.05% Fidel [place]) 2 spray Q12HR NASAL 11/19/16 11:00 11/22/16 08:48 (Flonase Fidel Spr) 2 spray DAILY NASAL 11/19/16 11:00 11/22/16 08:48 Methylprednisolone Sodium Succinate 40 mg 40 mg Q8HR IV PUSH 11/19/16 22:00 11/22/16 05:27 Cefepime HCl 2000 mg/Sodium Chloride 100 ml @ 200 mls/hr Q8H IV 11/19/16 18:00 11/22/16 08:56 Lactated Ringer's 1,000 ml @ 30 mls/hr Q24H PRN IV 11/20/16 04:30 11/23/16 04:29 (D5W-1/2 NS 1000 ml Inj) 1,000 ml @ 0 mls/hr Q0M IV 11/20/16 12:47 A/P Assessment and Plan 1. Sepsis secondary to Pneumonia followed by insurance sales specialist, with diagnosis of Left Basilar Pneumonia on Cefepime and Azithromycin, Bronchodilator, Mucolytic and Incentive spirometry. status post Bronchoscopy no Leukocytosis, afebrile. 2. Hilar mass to rule out malignancy status post Bronchoscopy 3. COPD with Emphysema no signs of exacerbation. DVT prevention SCD and ambulation, we'll hold on chemical due to thrombocytopenia Discharge Planning Awaiting final recommendations by insurance sales specialist for discharge. Scott Huntley MD November 22, 2016 13:36
[2016-11-22] MEDS: SODIUM CHLORIDE 0.9% FLUSH 10 ML FLUSH IV FLUSH PRN ×2 (14:03→18:00)
--- NOTE | 2016-11-22 18:28 | HHI.PR ---
Subjective Remarks Better to day .Bronch showed no endobronchial mass. Cytology pending. No fever. O2 sat 98 on RA. Cough is less Objective Vital Signs Date Time Temp Pulse Resp B/P Pulse Ox O2 Delivery O2 Flow Rate FiO2 11/22/16 16:00 98.5 79 18 124/88 96 11/22/16 12:00 97.4 83 18 129/65 96 11/22/16 09:00 98.1 87 18 123/63 96 11/22/16 08:00 96.9 95 19 187/79 96 11/22/16 04:00 96.2 62 17 118/70 96 11/22/16 01:27 94 11/22/16 00:00 96.8 67 17 124/72 96 11/21/16 20:00 97.1 72 17 130/75 95 I/O 11/21/16 11/21/16 11/21/16 11/22/16 11/22/16 11/22/16 07:00 15:00 23:00 07:00 15:00 23:00 Intake Total 0 ml 750 ml 240 ml 240 ml 480 ml Output Total 550 ml Balance 0 ml 200 ml 240 ml 240 ml 480 ml Intake Oral 0 ml 0 ml 240 ml 240 ml 480 ml IV Total 250 ml Other 500 ml Output Urine Total 550 ml # Voids 2 2 2 5 # Bowel Movements 4 2 Result Diagram: 11/20/1620 11/20/16 0820 Procedures Bronchoscopy 11/21/16 Objective Remarks This is an averagely built elderly white male who is alert and no distress HEENT: Head normocephalic. Pupils are reactive. Tongue is moist. Throat is mildly injected. Ears have mild cerumen. NECK: Supple. No bruits or thyroid enlargement or lymphadenopathy. CHEST: Increased AP diameter with no wheezes or crackles. HEART: The heart sounds were regular S1-S2. No murmur. ABDOMEN: Soft and benign. No masses or tenderness. EXTREMITIES: No edema. Reflexes are 1+ with no gross motor deficits. NEUROLOGIC: Cranial nerves grossly intact. RCTAL: Exam is deferred. Assessment and Plan Assessment and Plan IMPRESSION 1. Left basilar pneumonia with sepsis 2. Hilar mass, rule out malignancy 3. COPD with emphysema 4. Migraine headaches Plan : 1. Switch to PO meds in am 2. Wean O2 to RA. 3. D/C duoneb. 4. Ceftin 500 mg bid X 7 Days 5. OK to go home in am. 6. Will F/U in 1 week to 10 days and will Get a PET CT in 3 weeks Sadiq Adorno MD November 22, 2016 18:28
--- NOTE | 2016-11-22 19:59 | MP ---
cc: GIIG ADORNO DATE OF SURGERY: 11/22/2016. PREOPERATIVE DIAGNOSIS: Left hilar mass. POSTOPERATIVE DIAGNOSIS: No endobronchial mass on the left. PROCEDURE PERFORMED: Fiberoptic bronchoscopy with brushings and washings and lavage. SURGEON: Gigi Adorno MD. ANESTHESIA: General. DESCRIPTION OF THE PROCEDURE IN DETAIL AND FINDINGS: The patient was intubated under general anesthesia following which the Olympus IT-180 bronchoscope was used to visualized the bronchi. The scope was advanced via the endotracheal tube into the trachea. The trachea and farheen appeared normal. The scope was then advanced into the right mainstem and right upper lobe segmental bronchi. These bronchi demonstrated no gross endobronchial lesions. Next, the right middle and lower lobe segmental and subsegmental bronchi were visualized. These bronchi demonstrated a few mucoid secretions but no endobronchial lesions were seen. Following this, the scope was advanced into the left mainstem and left upper lobe segmental bronchi. These bronchi demonstrated mild endobronchitis with mucosal edema but no endobronchial mass was seen. Brushings were done for cytology and micro. Washings were done. The scope was also advanced into the left lower lobe segmental bronchi, which demonstrated no endobronchial lesions. Saline washings and lavage were done and the procedure was then terminated. The patient tolerated the procedure well. MD QUINTEN Bryant/NORIS /12:02 PM /7:47 PM
[2016-11-22] MEDS ORDERED: CEFUROXIME AXETIL 500 MG TAB PO SCH (21:00)
[2016-11-23] VITALS: BP 123/77; PULSE 66; RESP 18; TEMP 96.8; O2SAT 94
[2016-11-23 04:00] VITALS: BP 134/77; PULSE 58; RESP 16; TEMP 96.6; O2SAT 95
[2016-11-23] MEDS ORDERED: methylPREDNISolone SOD SUCC 125 MG/2 ML VIAL IV PUSH SCH (06:00)
[2016-11-23 08:00] VITALS: BP 125/73; PULSE 68; RESP 17; TEMP 97.2; O2SAT 97
[2016-11-23] MEDS ORDERED: diphenhydrAMINE HCL 25 MG CAP PO SCH (08:00)
[2016-11-23] MEDS: AZITHROMYCIN 250 MG TAB PO SCH (08:23)
[2016-11-23] MEDS: FLUTICASONE PROPIONATE 50 MCG/ACT 16 GM NASAL SPRAY NASAL SCH (08:23)
[2016-11-23] MEDS: OXYMETAZOLINE HCL 0.05% 15 ML NASAL SPRAY NASAL SCH (08:24)
[2016-11-23] MEDS: SODIUM CHLORIDE 0.9% FLUSH 10 ML FLUSH IV FLUSH SCH (08:24)
--- NOTE | 2016-11-23 08:56 | HHI.PR ---
Subjective Remarks This is a pleasant 66 y/o male with chronic back pain, who came to ER with fever , headache, Lethargic, body aches fever, sepsis and tachycardia, CXR with Opacities on the left lung base, nausea and vomit. 11/21: he will have Bronchoscopy later today, I think may be discharged after procedure and follow as outpatient by client renewal specialist and Oncology if indicated. his Mrs. Suarez in the room she works for [employer]. 11/22; Seen in his bedroom, and discussed with nurse miss Castaneda, he wants to go home, no nausea, vomit or diarrhea doctor Tila called and awaiting for his call back. 11/23: Stable seen in his bedroom, Discussed yesterday night with Doctor Sumanth Samuels and recommended to discharge Home today on Ceftin by mouth 500 mg BID for seven days, and follow in his office in one week, he will need PET scan in three weeks. Discontinued Duoneb, the patient developed rash during the night removed IV antibiotics and sent on by mouth antibiotics and antiallergic medicine for seven days. No nausea, vomit or diarrhea. Objective Vital Signs Date Time Temp Pulse Resp B/P Pulse Ox O2 Delivery O2 Flow Rate FiO2 11/23/16 08:00 97.2 68 17 125/73 97 11/23/16 04:00 96.6 58 16 134/77 95 11/23/16 00:00 96.8 66 18 123/77 94 11/22/16 20:00 96.7 73 16 151/70 95 11/22/16 16:00 98.5 79 18 124/88 96 11/22/16 12:00 97.4 83 18 129/65 96 11/22/16 09:00 98.1 87 18 123/63 96 I/O 11/22/16 11/22/16 11/22/16 11/23/16 11/23/16 11/23/16 07:00 15:00 23:00 07:00 15:00 23:00 Intake Total 240 ml 480 ml 620 ml 240 ml Balance 240 ml 480 ml 620 ml 240 ml Intake Oral 240 ml 480 ml 620 ml 240 ml IV Total 0 ml # Voids 2 5 3 2 # Bowel Movements 2 0 0 Result Diagram: 11/20/1681911/20/16819 Imaging Last Impressions Chest X-Ray 11/21/16 0000 Signed Impressions: Service Date/Time: Monday, November 21, 2016 12:09 - CONCLUSION: There is no pneumothorax following bronchoscopy Lamonte Salazar MD FACR Lower Extremity Ultrasound 11/19/16 0000 Signed Impressions: Service Date/Time: Saturday, November 19, 2016 13:57 - CONCLUSION: Negative for deep venous thrombosis. Lamonte Salazar MD FACR CT Angiography 11/19/16 0000 Signed Impressions: Service Date/Time: Saturday, November 19, 2016 11:59 - CONCLUSION: Adenopathy in the mediastinum with a small left hilar mass. The findings are suspicious for a small cell carcinoma. Metastatic disease could give a similar appearance. Lamonte Salazar MD FACR Procedures Bronchoscopy 11/21/16 Other Results Laboratory Tests Test 11/19/16 11/19/16 11/20/16 11/20/16 04:10 07:05 08:20 13:25 Hemoglobin A1c 5.2 % D-Dimer Quantitative (PE/DVT) 1.49 MG/L FEU White Blood Count 5.5 TH/MM3 Red Blood Count 3.95 MIL/MM3 Hemoglobin 12.5 GM/DL Hematocrit 36.1 % Mean Corpuscular Volume 91.3 FL Mean Corpuscular Hemoglobin 31.7 PG Mean Corpuscular Hemoglobin 34.8 % Concent Red Cell Distribution Width 13.8 % Platelet Count 113 TH/MM3 Mean Platelet Volume 8.9 FL Neutrophils (%) (Auto) 84.2 % Lymphocytes (%) (Auto) 10.0 % Monocytes (%) (Auto) 4.2 % Eosinophils (%) (Auto) 1.4 % Basophils (%) (Auto) 0.2 % Neutrophils # (Auto) 4.6 TH/MM3 Lymphocytes # (Auto) 0.5 TH/MM3 Monocytes # (Auto) 0.2 TH/MM3 Eosinophils # (Auto) 0.1 TH/MM3 Basophils # (Auto) 0.0 TH/MM3 CBC Comment DIFF FINAL Differential Comment Sodium Level 138 MEQ/L Potassium Level 3.9 MEQ/L Chloride Level 104 MEQ/L Carbon Dioxide Level 24.0 MEQ/L Anion Gap 10 MEQ/L Blood Urea Nitrogen 15 MG/DL Creatinine 1.10 MG/DL Estimat Glomerular Filtration 67 ML/MIN Rate Random Glucose 150 MG/DL Calcium Level 8.6 MG/DL Magnesium Level 2.2 MG/DL Prothrombin Time 11.6 SEC Prothromb Time International 1.0 RATIO Ratio Activated Partial 30.7 SEC Thromboplast Time Objective Remarks GENERAL: Well-developed, well-nourished, in no acute distress. alert and orientated HEENT: Head is normocephalic without any lesions or masses noted. Facial features are symmetric. Eyes: Pupils equal round reactive to light. Extraocular muscles are intact. Conjunctivae were clear. Oropharyngeal: Pharynx with erythema noted in the posterior pharynx. Tongue is midline without deviation. Buccal mucosa is moist without any masses or lesions. Palpable tenderness noted over frontal sinus and maxillary sinuses NECK: Supple without any masses. Trachea midline no deviation. No JVD, no bruits are appreciated CARDIAC: Regular rhythm, regular rate. S1/S2 are heard. No murmurs gallops or rubs. LUNGS: Clear to auscultation bilaterally. No wheeze, rhonchi or rales. No use of accessory muscles on inspiration or expiration. ABDOMEN: Soft, nontender. Nondistended. Bowel sounds heard in all 4 quadrants. No organomegaly or masses. Negative rebound, negative guarding EXTREMITIES: No edema, pulses are equal bilaterally. No cyanosis or clubbing NEUROLOGY: Mood and affect appear appropriate. Cranial nerves II through XII grossly intact. Muscle strength 5/5 in upper and lower extremities bilaterally. Deep tendon reflexes are 2+ in upper and lower extremities bilaterally. Medications and IVs Current Medications Medications (Trade) Dose Ordered Sig/Cassius Route Start Time Stop Time Status Last Admin (NS Flush) 2 ml UNSCH PRN IV FLUSH 11/18/16 23:15 11/22/16 18:00 (NS Flush) 2 ml BID IV FLUSH 11/19/16 09:00 11/23/16 08:24 (Narcan Inj) 0.4 mg UNSCH PRN IV 11/18/16 23:15 (Zithromax) 500 mg DAILY PO 11/19/16 09:00 11/23/16 08:23 (Tylenol) 500 mg Q6H PRN PO 11/19/16 01:30 11/20/16 18:32 (Zofran Inj) 4 mg Q6HR PRN IV PUSH 11/19/16 01:30 11/19/16 01:40 (Vasotec Inj) 1.25 mg Q6H PRN IV PUSH 11/19/16 09:30 (Afrin 0.05% Fidel Granby) 2 spray Q12HR NASAL 11/19/16 11:00 11/23/16 08:24 Fluticasone Propionate 2 spray 2 spray DAILY NASAL 11/19/16 11:00 11/23/16 08:23 (D5W-1/2 NS 1000 ml Inj) 1,000 ml @ 0 mls/hr Q0M IV 11/20/16 12:47 (Benadryl) 25 mg Q8H PO 11/23/16 08:00 11/24/16 00:01 11/23/16 06:43 (SoluMEDROL INJ) 60 mg Q8HR IV PUSH 11/23/16 06:00 11/23/16 06:44 A/P Assessment and Plan 1. Sepsis secondary to Pneumonia followed by client renewal specialist, with diagnosis of Left Basilar Pneumonia on Cefepime and Azithromycin, Bronchodilator, Mucolytic and Incentive spirometry. status post Bronchoscopy no Leukocytosis, afebrile. stable as per client renewal specialist doctor Sumanth Samuels okay to discharge home today on Ceftin 500 mg BID by mouth and follow in his office in one week and PET scan in three weeks, follow Pathology report not yet in EMR. 2. Hilar mass to rule out malignancy status post Bronchoscopy 3. COPD with Emphysema no signs of exacerbation. As Always a pleasure to talk about cases. Receive Input and Recommendations by Casing Wringer Operator Doctor Sumanth Adorno, Highly appreciated. DVT prevention SCD and ambulation, we'll hold on chemical due to thrombocytopenia Discharge Planning Discharge home now. Scott Huntley MD November 23, 2016 08:56
[2016-11-23] MEDS ORDERED: PRED20 PO (09:01)
[2016-11-23] MEDS ORDERED: AZIT250T3 PO (09:01)
--- NOTE | 2016-11-23 09:04 | HHI.DS ---
Discharge Summary Admission Date November 18, 2016 at 22:30 Discharge Date: November 23, 2016 Admitting Diagnosis (1) Sepsis ICD Code: A41.9 Diagnosis: Principal (2) Febrile illness ICD Code: R50.9 Diagnosis: Principal (3) Sinus tachycardia ICD Code: R00.0 Diagnosis: Principal (4) Cephalalgia ICD Code: R51 Diagnosis: Secondary (5) Sinusitis ICD Code: J32.9 Diagnosis: Secondary (6) Pneumonia ICD Code: J18.9 Diagnosis: Principal (7) Thrombocytopenia ICD Code: D69.6 Diagnosis: Principal Procedures Bronchoscopy and BAL Brief History - From Admission 66-year-old male with early chronic medical illness of chronic back pain who presented to the hospital because of fever. Patient states that his normal state of health on Thursday without any symptoms. Patient woke up Thursday at 2 AM with a headache located in the frontal sinus and bitemporal region. He does have migraines and this was not unusual for him to have a headache. However, patient states that he has felt lethargic with body aches all day. He laid on the couch all day until his came home. She took his temperature and is 102.0. Because of the fever they went to the ER [facility] for evaluation. Patient had workup done there and found to have sepsis with tachycardia, febrile illness, chest x-ray with opacity of the left lung base. Because of the reasons it was recommended by ER physician that patient be observed in the hospital for further recommendations. Upon evaluating the patient this morning he states that he still has a headache still located in the frontal and bitemporal region. He states that he did have an episode of vomiting this morning approximate 4 AM. He rates the pain 4/10 on a pain scale. Denies any rhinorrhea, cough, congestion, sputum production. He does have a sore throat which is making difficult for him to swallow. He states that because of the sore throat and he has not been able to breathe normally and he describes it as a dyspnea. Patient is not indicating any shortness of breath. CBC/BMP: 11/20/16 0820 11/20/16 0820 Significant Findings Laboratory Tests Test 11/20/16 13:25 Activated Partial 30.7 SEC Thromboplast Time (24.3-30.1) Imaging Last Impressions Chest X-Ray 11/21/16 0000 Signed Impressions: Service Date/Time: Monday, November 21, 2016 12:09 - CONCLUSION: There is no pneumothorax following bronchoscopy Lamonte Salazar MD FACR Lower Extremity Ultrasound 11/19/16 0000 Signed Impressions: Service Date/Time: Saturday, November 19, 2016 13:57 - CONCLUSION: Negative for deep venous thrombosis. Lamonte Salazar MD FACR CT Angiography 11/19/16 0000 Signed Impressions: Service Date/Time: Saturday, November 19, 2016 11:59 - CONCLUSION: Adenopathy in the mediastinum with a small left hilar mass. The findings are suspicious for a small cell carcinoma. Metastatic disease could give a similar appearance. Lamonte Salazar MD FACR PE at Discharge GENERAL: Well-developed, well-nourished, in no acute distress. alert and orientated HEENT: Head is normocephalic without any lesions or masses noted. Facial features are symmetric. Eyes: Pupils equal round reactive to light. Extraocular muscles are intact. Conjunctivae were clear. Oropharyngeal: Pharynx with erythema noted in the posterior pharynx. Tongue is midline without deviation. Buccal mucosa is moist without any masses or lesions. Palpable tenderness noted over frontal sinus and maxillary sinuses NECK: Supple without any masses. Trachea midline no deviation. No JVD, no bruits are appreciated CARDIAC: Regular rhythm, regular rate. S1/S2 are heard. No murmurs gallops or rubs. LUNGS: Clear to auscultation bilaterally. No wheeze, rhonchi or rales. No use of accessory muscles on inspiration or expiration. ABDOMEN: Soft, nontender. Nondistended. Bowel sounds heard in all 4 quadrants. No organomegaly or masses. Negative rebound, negative guarding EXTREMITIES: No edema, pulses are equal bilaterally. No cyanosis or clubbing NEUROLOGY: Mood and affect appear appropriate. Cranial nerves II through XII grossly intact. Muscle strength 5/5 in upper and lower extremities bilaterally. Deep tendon reflexes are 2+ in upper and lower extremities bilaterally. Hospital Course This is a pleasant 66 y/o male with chronic back pain, who came to ER with fever , headache, Lethargic, body aches fever, sepsis and tachycardia, CXR with Opacities on the left lung base, nausea and vomit. 11/21: he will have Bronchoscopy later today, I think may be discharged after procedure and follow as outpatient by health support specialist and Oncology if indicated. his Mrs. Suarez in the room she works for [employer] . 11/22; Seen in his bedroom, and discussed with nurse miss Castaneda, he wants to go home, no nausea, vomit or diarrhea doctor Tila called and awaiting for his call back. 11/23: Stable seen in his bedroom, Discussed yesterday night with Doctor Sumanth Samuels and recommended to discharge Home today on Ceftin by mouth 500 mg BID for seven days, and follow in his office in one week, he will need PET scan in three weeks. Discontinued Duoneb, the patient developed rash during the night removed IV antibiotics and sent on by mouth antibiotics and antiallergic medicine for seven days. No nausea, vomit or diarrhea. Assessment and Plan 1. Sepsis secondary to Pneumonia followed by health support specialist, with diagnosis of Left Basilar Pneumonia on Cefepime and Azithromycin, Bronchodilator, Mucolytic and Incentive spirometry. status post Bronchoscopy no Leukocytosis, afebrile. stable as per health support specialist doctor Sumanth Samuels okay to discharge home today on Ceftin 500 mg BID by mouth and follow in his office in one week and PET scan in three weeks, follow Pathology report not yet in EMR. The patient developed allergic reaction to Ceftin will go on Azithromycin by mouth for five days and Prednisone 20 mg daily for five days. 2. Hilar mass to rule out malignancy status post Bronchoscopy, follow with Pulmonary for pathology report of BAL and PET scan in three weeks. 3. COPD with Emphysema no signs of exacerbation. As Always a pleasure to talk about cases. Receive Input and Recommendations by Hand Tube Bender Doctor Sumanth Adorno, Highly appreciated. DVT prevention SCD and ambulation, we'll hold on chemical due to thrombocytopenia Discharge Planning Discharge home now. Pt Condition on Discharge: Good Discharge Disposition: Discharge Home Discharge Time: > 30 minutes Discharge Instructions DIET: Follow Instructions for: As Tolerated, No Restrictions Activities you can perform: Regular-No Restrictions Scott Huntley MD November 23, 2016 09:04
[2016-11-24] MEDS ORDERED: PRED50 PO (06:35)
[2016-12-01] MEDS ORDERED: TRAM50TA PO (07:41)
[2016-12-01] MEDS ORDERED: NAPR250T PO (07:42)
== END 2016-11-23 10:33 | disposition home or self-care (01) | DRG 853 ==
LOC: PHEDDLT 22:20 → PH3A 22:30 → OBSVTOIN 22:30 → N07B 11-19 22:07
PROVIDERS: ADMIT Internal Medicine; ATTEND Internal Medicine
PROC: 0BBG8ZX Excision of Left Upper Lung Lobe, Via Natural or Artificial Opening Endoscopic, Diagnostic (ICD-10-PCS; 2016-11-21)
PROC: 0B9L8ZX Drainage of Left Lung, Via Natural or Artificial Opening Endoscopic, Diagnostic (ICD-10-PCS; 2016-11-21)
PROC: 0BB78ZX Excision of Left Main Bronchus, Via Natural or Artificial Opening Endoscopic, Diagnostic (ICD-10-PCS; principal; 2016-11-21 11:34)
DX: A41.9 Sepsis, unspecified organism (principal); J18.9 Pneumonia, unspecified organism; D69.6 Thrombocytopenia, unspecified; J44.9 Chronic obstructive pulmonary disease, unspecified; R13.10 Dysphagia, unspecified; R91.8 Other nonspecific abnormal finding of lung field; R00.0 Tachycardia, unspecified; G43.909 Migraine, unspecified, not intractable, without status migrainosus; R73.9 Hyperglycemia, unspecified; G89.29 Other chronic pain; M54.9 Dorsalgia, unspecified; Z88.0 Allergy status to penicillin; Z87.891 Personal history of nicotine dependence; J32.4 Chronic pansinusitis; R59.0 Localized enlarged lymph nodes; R21 Rash and other nonspecific skin eruption
CPT/HCPCS: 70450; 70486; 71010; 71275; 80048; 80053; 81001; 82550; 83036; 83605; 83735; 83880; 84484; 85025; 85379; 85610; 85730; 87015; 87040; 87070; 87102; 87116; 87205; 87206; 87804; 88112; 88305; 88312; 93005; 93970; 96365; 96367; 96375; 99281; J0171; J0456; J0692; J0696; J1170; J2060; J2405; J2920; J2930; J7030; J7050; Q9967

== ENCOUNTER → 2016-12-04 | Outpatient (CLI) | payer MEDICARE, OTHER ==
[~2016-12-04] MED LIST changes: +NAPR250T PO; -NAPR500 PO; -ZITH500T PO
== END ==
LOC: CLAB 06:35
DX: J44.9 Chronic obstructive pulmonary disease, unspecified (principal); R05 Cough; R59.9 Enlarged lymph nodes, unspecified; J98.4 Other disorders of lung
CPT/HCPCS: 36415; 82164; 82378

== ENCOUNTER → 2017-02-16 | Outpatient (CLI) | payer MEDICARE, OTHER ==
[~2017-02-16] MED LIST changes: +CETI10 PO; +FLUT50SP EACH NARE; +MONT10TA2 PO
[2017-02-16 11:09] LABS: HEMATOCRIT 38.9 % (39.0-51.0); MEAN CELL VOLUME 92.9 FL (80.0-100.0); MEAN CORPUSCULAR HEMOGLOBIN 31.6 PG (27.0-34.0); PLATELET COUNT 180 TH/MM3 (150-450); RED BLOOD COUNT 4.19 MIL/MM3 (4.50-5.90); RED CELL DISTRIBUTION WIDTH 13.7 % (11.6-17.2); REVIEW FLAG FINAL
[2017-02-16 11:38] LABS: ALT (GPT) 33 U/L (12-78); ANION GAP 7 MEQ/L (5-15); AST (GOT) 25 U/L (15-37); BICARBONATE 25.8 MEQ/L (21.0-32.0); BLOOD UREA NITROGEN 31 MG/DL (7-18); CHLORIDE 107 MEQ/L (98-107); GLUCOSE,FASTING 88 MG/DL (74-99); POTASSIUM 5.2 MEQ/L (3.5-5.1); SODIUM (NA) 140 MEQ/L (136-145)
[2017-02-16 11:40] LABS: ALKALINE PHOSPHATASE 154 U/L (45-117); GLOMERULAR FILTRATION RATE 46 ML/MIN (>89); TOTAL BILIRUBIN ADULT 0.5 MG/DL (0.2-1.0)
== END ==
LOC: CLAB 10:21
DX: J18.9 Pneumonia, unspecified organism (principal); J44.9 Chronic obstructive pulmonary disease, unspecified; R05 Cough
CPT/HCPCS: 36415; 80053; 85027

== ENCOUNTER → 2017-02-24 | Outpatient (CLI) | payer MEDICARE, OTHER ==
[2017-02-24 10:32] LABS: BLOOD, URINE NEG (NEG); GLUCOSE,URINE NEG (NEG); KETONE, URINE NEG (NEG); MUCUS URINE FEW /lpf (OCC); NITRITE,URINE NEG (NEG); PH, URINE 5.5 (5.0-8.5); SQUAMOUS EPITHELIAL CELL URINE <1 /hpf (0-5); URINE COLOR YELLOW (YELLW/STRAW)
[2017-02-24 10:41] LABS: HDL CHOLESTEROL 42.7 MG/DL (40.0-60.0)
== END ==
LOC: CLAB 08:36
PROVIDERS: ATTEND Nurse Practitioner Family
DX: Z13.220 Encounter for screening for lipoid disorders (principal)
CPT/HCPCS: 36415; 80061; 81001

== ENCOUNTER → 2017-04-10 | Outpatient (CLI) | payer MEDICARE ==
[~2017-04-10] MED LIST changes: -FLUT50SP EACH NARE
[2017-04-10 13:13] LABS: BASOPHIL % 0.3 % (0.0-2.0); EOSINOPHIL # 0.3 TH/MM3 (0-0.4); EOSINOPHIL % 5.1 % (0.0-4.0); HEMATOCRIT 41.1 % (39.0-51.0); HEMO FLAGS DIFF FINAL; LYMPH % 25.7 % (9.0-44.0); LYMPHOCYTE # 1.3 TH/MM3 (1.0-4.8); MEAN CELL VOLUME 94.6 FL (80.0-100.0); MEAN CORPUSCULAR HEMOGLOBIN 31.5 PG (27.0-34.0); MEAN CORPUSCULAR HGB CONC 33.3 % (32.0-36.0); MONO % 9.3 % (0.0-8.0); NEUT % 59.6 % (16.0-70.0); PLATELET COUNT 187 TH/MM3 (150-450); RED BLOOD COUNT 4.34 MIL/MM3 (4.50-5.90); RED CELL DISTRIBUTION WIDTH 13.5 % (11.6-17.2); WHITE BLOOD COUNT 4.9 TH/MM3 (4.0-11.0)
[2017-04-10 13:39] LABS: TRANSFERRIN IRON PROFILE 204 MG/DL (200-360)
== END ==
LOC: PLAB 08:30
PROVIDERS: ATTEND Nurse Practitioner Family
DX: D64.9 Anemia, unspecified (principal)
CPT/HCPCS: 36415; 83540; 83550; 85025